=== PATIENT | male | born 1975 | race Caucasian/White ===

== ENCOUNTER 2016-12-08 11:27 | Emergency (ER) | payer OTHER ==
--- NOTE | 2016-12-08 14:29 | ED CLINICAL REPORT ---
Clinical Report - Physicians/Mid Levels [facility] [address] [place] [address] 12/08/2016 11:28 [id number] Time Seen: 12:43; initial patient contact. Arrived- By private vehicle. Historian- patient. HISTORY OF PRESENT ILLNESS Chief Complaint: JOINT PAIN. At its maximum, severity described as moderate. When seen in the E.D., severity described as moderate. Modifying factors- worsened by movement. Relieved by rest. This started about 1 week ago and is still present. It was gradual in onset and has been constant. The patient has had muscle aches. Similar symptoms previously: Many times. Recent medical care: Not recently seen/assessed. REVIEW OF SYSTEMS No fever, chills or skin rash. He has had joint pain. All systems otherwise negative, except as recorded above. PAST HISTORY OA. Surgeries: No history of previous surgery. Medications: Aspirin Oral. Allergies: No Known Drug Allergy. SOCIAL HISTORY Current every day smoker. Occasional alcohol use. No drug use. ADDITIONAL NOTES The nursing notes have been reviewed. PHYSICAL EXAM Vital Signs: 12/08/2016 11:36 BP: 124/83. HR: 92. RR: 15. O2 saturation: 95%. Temp: 97.7 F. Pain level now: 7/10. Have been reviewed as normal. Appearance: Alert. No acute distress. Eyes: Eyes normal inspection. ENT: Pharynx normal. Skin: Skin warm and dry. Normal skin color. No rash. Extremities: Right elbow: moderate tenderness located in the area of the medial epicondyle and lateral epicondyle. Neurovascular intact distally. No erythema, swelling or deformity. No limitation in ROM. Left foot: moderate tenderness of the dorsal aspect of the mid foot. Neurovascular intact distally. No erythema or swelling. No limitation of weight bearing. Neuro: Oriented X 3. No motor deficit. LABS, X-RAYS, AND EKG Lt Foot X-ray: No fracture. Normal alignment. No bony lesion, air in the soft tissue or foreign body. Soft tissues normal. Joint spaces normal. Views: 3 view foot series. Technique: good. The X-rays were independently viewed by me and interpreted contemporaneously by me. Prior films were not available for comparison. Interpretation time: 14:29. PROGRESS AND PROCEDURES Disposition: Discharged home in good and improved condition. Condition: good. CLINICAL IMPRESSION Acute inflammatory tendonitis in the left elbow. Single contusion to the left foot.No hematoma or skin abrasion. INSTRUCTIONS Your Current Medications: CONTINUE TAKING THE FOLLOWING MEDICATIONS: Aspirin Oral. Prescription Medications: Diclofenac 50 mg tablets: take 1 tablet orally every 8 hours as needed for pain or stiffness. Dispense thirty (30). No refill. Follow-up: Screening today revealed the patient's blood pressure to be in the pre-hypertensive range. The patient should follow up with a primary care provider for blood pressure management. Follow-up with: [facility], , [address], [facility], [id number] Follow up in about two days. Call for an appointment. (Electronically signed by Umberto Denise Dr. 12/10/2016 5:32)
--- NOTE | 2016-12-08 14:29 | ED NURSING NOTES ---
Clinical Report - Nurses [facility] [address] [place] [address] 12/08/2016 11:28 Patient: AVIVA LIMON [facility]#: [id number] TRIAGE Triage time 11:32. Acuity: LEVEL 4. Chief Complaint: JOINT PAIN (Right sided joint pain, left knee pain.). 11:46 12/08/16. Alert. No acute distress. SEPSIS SCREEN: Sepsis Screen. Negative (no infection suspected/documented). RICHIE COMA SCORE: [place] Coma Scale: 15- eyes open spontaneously (4); best verbal response- oriented x 4 (5); best motor response- obeys commands (6). --11:46 Sharon Chandra R.N. 11:36 12/08/16. BP: 124/83. HR: 92. RR: 15. O2 saturation: 95%. Temp: 97.7 F. Pain level now: 03/22. --11:46 Sharon Chandra R.N. 11:48 12/08/16. --11:48 Sharon Chandra R.N. Weight: 99.7 kg stated. Height/Length: 71 inches Per Patient. BMI: 30.7. --11:42 Sharon Chandra R.N. Medications Aspirin Oral. --11:40 Sharon Chandra R.N. Allergies No Known Drug Allergy. --11:40 Sharon Chandra R.N. History <<STRICKEN ENTRY-- Arrived by private vehicle. Historian: patient. Primary physician (Pt states he would like to find a primary care doctor, but doesn't currently have one.). Onset. (1 week ago). ( Patient states he has been diagnosed with gout before, but has not had a flare up in a year or two. The patient states he was seeing a family law mediator at [facility] (Dr. Raymond) who told him he may have rheumatoid arthritis.). Reports muscle aches. 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 PAST MEDICAL HX: Immunizations: up-to-date. SOCIAL HX: Light tobacco smoker- less than 1/2 a pack per day. Occasional alcohol use. No drug use. FALL RISK ASSESSMENT: Fall risk assessment completed. No fall risk identified. NUTRITIONAL RISK ASSESSMENT: The nutritional risk assessment revealed no deficiencies. FUNCTIONAL ASSESSMENT: Functional assessment: no impairments noted. LEARNING NEEDS ASSESSMENT: The learning needs assessment revealed no barriers. SKIN INTEGRITY ASSESSMENT: Skin integrity risk assessment completed. No skin integrity risk identified. --11:46 Sharon Chandra R.N. --END STRIKE>> Correction --11:47 Sharon Chandra R.N. Arrived by private vehicle. Historian: patient. Primary physician (Pt states he would like to find a primary care doctor, but doesn't currently have one.). Onset. (1 week ago). ( Patient states he has been diagnosed with gout before, but has not had a flare up in a year or two. The patient states he was seeing a family law mediator at [facility] (Dr. Raymond) who told him he may have osteoarthritis.). Reports muscle aches. 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 PAST MEDICAL HX: Immunizations: up-to-date. SOCIAL HX: Light tobacco smoker- less than 1/2 a pack per day. Occasional alcohol use. No drug use. FALL RISK ASSESSMENT: Fall risk assessment completed. No fall risk identified. NUTRITIONAL RISK ASSESSMENT: The nutritional risk assessment revealed no deficiencies. FUNCTIONAL ASSESSMENT: Functional assessment: no impairments noted. LEARNING NEEDS ASSESSMENT: The learning needs assessment revealed no barriers. SKIN INTEGRITY ASSESSMENT: Skin integrity risk assessment completed. No skin integrity risk identified. --11:48 Sharon Chandra R.N. PROBLEMS: Myocardial Infarction. Sprain. Plantar Fasciitis. Gastroenteritis. Cellulitis. Coronary Artery Disease. Chest Pain. Chest pain . Arthritis. Hypovolemia. Chronic Back Pain. Lumbar Strain. Syncope. Back Pain. Acute Pain. Gout. Tetanus Status. Immunizations. --11:41 Sharon Chandra R.N. ADDITIONAL SURGERIES: Coronary Angioplasty. Stent placement. --11:41 Sharon Chandra R.N. Interventions ID band on patient. To treatment room. --11:46 Sharon Chandra R.N. PHYSICAL ASSESSMENT 11:47 12/08/16. Ambulatory to room. GENERAL / NEURO / PSYCH: Alert. Oriented X 4. Appears in pain. (Patient appears to be in pain when ambulating). HEENT: No facial asymmetry noted. Mucous membranes are pink. RESPIRATORY: Respirations not labored. CVS: Capillary refill less than 2 seconds. Pulses within normal limits. SKIN: Skin is warm and dry. Normal skin turgor. --11:47 Sharon Chandra R.N. NURSING PROGRESS NOTES 11:48 12/08/16. Patient gowned. Two patient identifiers checked. Call light placed in reach. Side rails up x 1. Bed placed in lowest position. Brakes of bed on. --11:48 Sharon Chandra R.N. 13:10 12/08/2016 Motrin PO Tablets 800 mg given. Allergies verified and confirmed 5 rights. --13:10 Sharon Chandra R.N. DISPOSITION / DISCHARGE 14:41 12/08/16. The patient left prior to discharge education being provided. ( This RN looked for the patient in his room and the lobby. This RN attempted to call the patient on his phone, which went to voicemoil.). --14:41 Sharon Chandra R.N. 14:42 12/08/16. Unable to locate patient. Notified the ED physician of patient departure. Patient left without signing form prior to leaving. He left the Emergency Department ambulatory. The patient eloped. --14:43 Sharon Chandra R.N. 14:44 12/08/16. --14:44 Sharon Chandra R.N. 14:43 12/08/16. BP: unable to obtain due to patient not present. HR: unable to obtain due to patient not present. RR: unable to obtain due to patient not present. O2 saturation: unable to obtain due to patient not present. Temp: unable to obtain due to patient not present. Pain level now unable to obtain due to patient not present. --14:44 Sharon Chandra R.N. Locked/Released at 12/08/2016 14:54 by Sharon Chandra R.N.
--- NOTE | 2016-12-08 14:29 | ED NURSING NOTES ---
Clinical Report - Nurses [facility] [address] [place] [address] 12/08/2016 11:28 Patient: AVIVA LIMON [facility]#: [id number] TRIAGE Triage time 11:32. Acuity: LEVEL 4. Chief Complaint: JOINT PAIN (Right sided joint pain, left knee pain.). 11:46 12/08/16. Alert. No acute distress. SEPSIS SCREEN: Sepsis Screen. Negative (no infection suspected/documented). RICHIE COMA SCORE: [place] Coma Scale: 15- eyes open spontaneously (4); best verbal response- oriented x 4 (5); best motor response- obeys commands (6). --11:46 Sharon Chandra R.N. 11:36 12/08/16. BP: 124/83. HR: 92. RR: 15. O2 saturation: 95%. Temp: 97.7 F. Pain level now: 03/22. --11:46 Sharon Chandra R.N. 11:48 12/08/16. --11:48 Sharon Chandra R.N. Weight: 99.7 kg stated. Height/Length: 71 inches Per Patient. BMI: 30.7. --11:42 Sharon Chandra R.N. Medications Aspirin Oral. --11:40 Sharon Chandra R.N. Allergies No Known Drug Allergy. --11:40 Sharon Chandra R.N. History <<STRICKEN ENTRY-- Arrived by private vehicle. Historian: patient. Primary physician (Pt states he would like to find a primary care doctor, but doesn't currently have one.). Onset. (1 week ago). ( Patient states he has been diagnosed with gout before, but has not had a flare up in a year or two. The patient states he was seeing a cleaner housekeeping at [facility] (Dr. Raymond) who told him he may have rheumatoid arthritis.). Reports muscle aches. 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 PAST MEDICAL HX: Immunizations: up-to-date. SOCIAL HX: Light tobacco smoker- less than 1/2 a pack per day. Occasional alcohol use. No drug use. FALL RISK ASSESSMENT: Fall risk assessment completed. No fall risk identified. NUTRITIONAL RISK ASSESSMENT: The nutritional risk assessment revealed no deficiencies. FUNCTIONAL ASSESSMENT: Functional assessment: no impairments noted. LEARNING NEEDS ASSESSMENT: The learning needs assessment revealed no barriers. SKIN INTEGRITY ASSESSMENT: Skin integrity risk assessment completed. No skin integrity risk identified. --11:46 Sharon Chandra R.N. --END STRIKE>> Correction --11:47 Sharon Chandra R.N. Arrived by private vehicle. Historian: patient. Primary physician (Pt states he would like to find a primary care doctor, but doesn't currently have one.). Onset. (1 week ago). ( Patient states he has been diagnosed with gout before, but has not had a flare up in a year or two. The patient states he was seeing a cleaner housekeeping at [facility] (Dr. Raymond) who told him he may have osteoarthritis.). Reports muscle aches. 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 PAST MEDICAL HX: Immunizations: up-to-date. SOCIAL HX: Light tobacco smoker- less than 1/2 a pack per day. Occasional alcohol use. No drug use. FALL RISK ASSESSMENT: Fall risk assessment completed. No fall risk identified. NUTRITIONAL RISK ASSESSMENT: The nutritional risk assessment revealed no deficiencies. FUNCTIONAL ASSESSMENT: Functional assessment: no impairments noted. LEARNING NEEDS ASSESSMENT: The learning needs assessment revealed no barriers. SKIN INTEGRITY ASSESSMENT: Skin integrity risk assessment completed. No skin integrity risk identified. --11:48 Sharon Chandra R.N. PROBLEMS: Myocardial Infarction. Sprain. Plantar Fasciitis. Gastroenteritis. Cellulitis. Coronary Artery Disease. Chest Pain. Chest pain . Arthritis. Hypovolemia. Chronic Back Pain. Lumbar Strain. Syncope. Back Pain. Acute Pain. Gout. Tetanus Status. Immunizations. --11:41 Sharon Chandra R.N. ADDITIONAL SURGERIES: Coronary Angioplasty. Stent placement. --11:41 Sharon Chandra R.N. Interventions ID band on patient. To treatment room. --11:46 Sharon Chandra R.N. PHYSICAL ASSESSMENT 11:47 12/08/16. Ambulatory to room. GENERAL / NEURO / PSYCH: Alert. Oriented X 4. Appears in pain. (Patient appears to be in pain when ambulating). HEENT: No facial asymmetry noted. Mucous membranes are pink. RESPIRATORY: Respirations not labored. CVS: Capillary refill less than 2 seconds. Pulses within normal limits. SKIN: Skin is warm and dry. Normal skin turgor. --11:47 Sharon Chandra R.N. NURSING PROGRESS NOTES 11:48 12/08/16. Patient gowned. Two patient identifiers checked. Call light placed in reach. Side rails up x 1. Bed placed in lowest position. Brakes of bed on. --11:48 Sharon Chandra R.N. 13:10 12/08/2016 Motrin PO Tablets 800 mg given. Allergies verified and confirmed 5 rights. --13:10 Sharon Chandra R.N. DISPOSITION / DISCHARGE 14:41 12/08/16. The patient left prior to discharge education being provided. ( This RN looked for the patient in his room and the lobby. This RN attempted to call the patient on his phone, which went to voicelail.). --14:41 Sharon Chandra R.N. 14:42 12/08/16. Unable to locate patient. Notified the ED physician of patient departure. Patient left without signing form prior to leaving. He left the Emergency Department ambulatory. The patient eloped. --14:43 Sharon Chandra R.N. 14:44 12/08/16. --14:44 Sharon Chandra R.N. 14:43 12/08/16. BP: unable to obtain due to patient not present. HR: unable to obtain due to patient not present. RR: unable to obtain due to patient not present. O2 saturation: unable to obtain due to patient not present. Temp: unable to obtain due to patient not present. Pain level now unable to obtain due to patient not present. --14:44 Sharon Chandra R.N. Locked/Released at 12/08/2016 14:54 by Sharon Chandra R.N.
--- NOTE | 2016-12-08 14:29 | ED CLINICAL REPORT ---
Clinical Report - Physicians/Mid Levels [facility] [address] [place] [address] 12/08/2016 11:28 [id number] Time Seen: 12:43; initial patient contact. Arrived- By private vehicle. Historian- patient. HISTORY OF PRESENT ILLNESS Chief Complaint: JOINT PAIN. At its maximum, severity described as moderate. When seen in the E.D., severity described as moderate. Modifying factors- worsened by movement. Relieved by rest. This started about 1 week ago and is still present. It was gradual in onset and has been constant. The patient has had muscle aches. Similar symptoms previously: Many times. Recent medical care: Not recently seen/assessed. REVIEW OF SYSTEMS No fever, chills or skin rash. He has had joint pain. All systems otherwise negative, except as recorded above. PAST HISTORY OA. Surgeries: No history of previous surgery. Medications: Aspirin Oral. Allergies: No Known Drug Allergy. SOCIAL HISTORY Current every day smoker. Occasional alcohol use. No drug use. ADDITIONAL NOTES The nursing notes have been reviewed. PHYSICAL EXAM Vital Signs: 12/08/2016 11:36 BP: 124/83. HR: 92. RR: 15. O2 saturation: 95%. Temp: 97.7 F. Pain level now: 7/10. Have been reviewed as normal. Appearance: Alert. No acute distress. Eyes: Eyes normal inspection. ENT: Pharynx normal. Skin: Skin warm and dry. Normal skin color. No rash. Extremities: Right elbow: moderate tenderness located in the area of the medial epicondyle and lateral epicondyle. Neurovascular intact distally. No erythema, swelling or deformity. No limitation in ROM. Left foot: moderate tenderness of the dorsal aspect of the mid foot. Neurovascular intact distally. No erythema or swelling. No limitation of weight bearing. Neuro: Oriented X 3. No motor deficit. LABS, X-RAYS, AND EKG Lt Foot X-ray: No fracture. Normal alignment. No bony lesion, air in the soft tissue or foreign body. Soft tissues normal. Joint spaces normal. Views: 3 view foot series. Technique: good. The X-rays were independently viewed by me and interpreted contemporaneously by me. Prior films were not available for comparison. Interpretation time: 14:29. PROGRESS AND PROCEDURES Disposition: Discharged home in good and improved condition. Condition: good. CLINICAL IMPRESSION Acute inflammatory tendonitis in the left elbow. Single contusion to the left foot.No hematoma or skin abrasion. INSTRUCTIONS Your Current Medications: CONTINUE TAKING THE FOLLOWING MEDICATIONS: Aspirin Oral. Prescription Medications: Diclofenac 50 mg tablets: take 1 tablet orally every 8 hours as needed for pain or stiffness. Dispense thirty (30). No refill. Follow-up: Screening today revealed the patient's blood pressure to be in the pre-hypertensive range. The patient should follow up with a primary care provider for blood pressure management. Follow-up with: [facility], , [address], [facility], [address] Follow up in about two days. Call for an appointment. (Electronically signed by Umberto Denise Dr. 12/10/2016 5:32)
--- NOTE | 2016-12-08 14:30 | ED ORDER SUMMARY ---
..... Patient: AVIVA LIMON OrderSheet [facility] VisitID: [id number] [place] [address] 41y, M Registration Date/Time: 12/08/2016 ORDER SHEET Weight: 99.7 kg (stated) Allergies: No Known Drug Allergy GENERAL ORDERS: Foot 3V Right Urgent (13:07 12/08/2016 Nitesh Huerta) (Ack 13:09 Radha) (14:31 Shayan R.N.) MEDICATION ORDERS: Motrin PO 800 mg (NOW) (13:07 12/08/2016 Nitesh Huerta) (Ack 13:08 Shayan R.N.) (13:10 Shayan R.N.) IV FLUIDS: ORDER SHEET NOTES: [Electronically signed by Sharon Chandra R.N. (14:54 12/08/2016)] [Electronically signed by Umberto Denise Dr. (05:32 12/10/2016)] [Electronically locked/signed by Sharon Chandra R.N. (14:54 12/08/2016)]
--- NOTE | 2016-12-08 14:30 | ED ORDER SUMMARY ---
..... Patient: AVIVA LIMON OrderSheet [facility] VisitID: [id number] [place] [address] 41y, M Registration Date/Time: 12/08/2016 ORDER SHEET Weight: 99.7 kg (stated) Allergies: No Known Drug Allergy GENERAL ORDERS: Foot 3V Right Urgent (13:07 12/08/2016 Nitesh Huerta) (Ack 13:09 Radha) (14:31 Shayan R.N.) MEDICATION ORDERS: Motrin PO 800 mg (NOW) (13:07 12/08/2016 Nitesh Huerta) (Ack 13:08 Shayan R.N.) (13:10 Shayan R.N.) IV FLUIDS: ORDER SHEET NOTES: [Electronically signed by Sharon Chandra R.N. (14:54 12/08/2016)] [Electronically signed by Umberto Denise Dr. (05:32 12/10/2016)] [Electronically locked/signed by Sharon Chandra R.N. (14:54 12/08/2016)]
--- NOTE | 2016-12-08 15:14 | DIAGNOSTIC IMAGING REPORT ---
PROCEDURE: XR FOOT 3 VIEWS - RIGHT INDICATION: PAIN TECHNIQUE: Three views. COMPARISON: None. FINDINGS: Osseous structures and joint spaces are normal. IMPRESSION: 1. Normal right foot.
--- NOTE | 2016-12-10 05:32 | ED MAR SUMMARY ---
..... Medication Administration Record [facility] [address] [place] [address] Patient: AVIVA LIMON Visit ID: [id number] 41y, M Weight: 99.7 kg Height/Length: 71 in BMI: 30.7 ALLERGIES: No Known Drug Allergy Given 13:10 12/08/2016 Sharon Chandra RAnaNAna Medication Administered: MOTRIN [PO], Dose: 800 mg Tablets PO. Medication Ordered: Motrin PO 800 mg (NOW).
--- NOTE | 2016-12-10 05:32 | ED DISCHARGE INSTRUCTIONS ---
Patient: AVIVA LIMON General Instructions [facility] VisitID: [id number] [address] [place], [place] [id number] 41y, M Registration Date/Time: 12/08/2016 Acute inflammatory tendonitis in the left elbow. Single contusion to the left foot.No hematoma or skin abrasion. INSTRUCTIONS Your Current Medications: CONTINUE TAKING THE FOLLOWING MEDICATIONS: Aspirin Oral. Prescription Medications: Diclofenac 50 mg tablets: take 1 tablet orally every 8 hours as needed for pain or stiffness. Dispense thirty (30). No refill. Follow-up: Screening today revealed the patient's blood pressure to be in the pre-hypertensive range. The patient should follow up with a primary care provider for blood pressure management. Follow[facility] with: [facility], , [address], , [place], [phone] Follow up in about two days. Call for an appointment. ADDITIONAL INFORMATION Contusion,Soft Tissue You have a CONTUSION, which is a bruise with swelling and some bleeding under the skin. There are no broken bones. This injury takes a few days to a few weeks to heal. Home Care: 1) Keep the injured part elevated to reduce pain and swelling. This is especially important during the first 48 hours. 2) Make an ice pack (ice cubes in a plastic bag, wrapped in a towel) and apply for 20 minutes every 1-2 hours the first day. Continue this 3-4 times a day until the pain and swelling goes away. 3) You may use acetaminophen (Tylenol) or ibuprofen (Motrin, Advil) to control pain, unless another pain medicine was prescribed. [ NOTE : If you have chronic liver or kidney disease or ever had a stomach ulcer or GI bleeding, talk with your doctor before using these medicines.] Follow Up with your doctor or this facility if you are not improving within the next THREE days. [NOTE: If X-rays were taken, they will be reviewed by a radiologist. You will be notified of any new findings that may affect your care.] Get Prompt Medical Attention if any of the following occur: -- Pain or swelling increases -- Injured arm or leg becomes cold, blue, numb or tingly -- Redness, warmth or drainage from the skin Tendonitis A tendon is the thick fibrous cord that joins muscle to bone and causes joints to move. Tendonitis is inflammation of the tendon which may be due to overuse, injury or infection. This usually involves the shoulders, forearm, wrist, hands and foot. Symptoms include local pain, swelling and tenderness to the touch. Movement of the involved joint increases the pain. Tendonitis requires about 4 to 6 weeks to heal. It is treated by preventing motion of the tendon with a splint or brace and use of anti-inflammatory medicine. Home Care: Apply an ice pack (ice cubes in a plastic bag, wrapped in a towel) over the injured area for 20 minutes every 1-2 hours the first day for pain relief. Continue this 3-4 times a day until the pain and swelling goes away. Rest the inflamed joint and protect it from movement. You may use ibuprofen (Motrin, Advil) or naproxen (Aleve, Naprosyn) to treat pain and inflammation, unless another medicine was prescribed. If you can't take these medicines, acetaminophen (Tylenol) may help with the pain, but does not treat inflammation. [NOTE : If you have chronic liver or kidney disease or ever had a stomach ulcer or GI bleeding, talk with your doctor before using these medicines.] As your symptoms improve, begin gradual motion at the involved joint. Follow Up With Your Doctor If Not Improving After The First Five Days Of Treatment. Get Prompt Medical Attention If Any Of The Following Occur: Redness over the painful area Increasing pain or swelling at the joint Fever of 100.4F (38C) or higher, or as directed by your healthcare provider You have been given the following additional information: Contusion, Soft Tissue Tendonitis (Electronically signed by Umberto Denise Dr. 12/10/2016 5:32)
--- NOTE | 2016-12-10 05:32 | ED DISCHARGE INSTRUCTIONS ---
Patient: AVIVA LIMON General Instructions [facility] VisitID: [id number] [address] [place], [place] [id number] 41y, M Registration Date/Time: 12/08/2016 Acute inflammatory tendonitis in the left elbow. Single contusion to the left foot.No hematoma or skin abrasion. INSTRUCTIONS Your Current Medications: CONTINUE TAKING THE FOLLOWING MEDICATIONS: Aspirin Oral. Prescription Medications: Diclofenac 50 mg tablets: take 1 tablet orally every 8 hours as needed for pain or stiffness. Dispense thirty (30). No refill. Follow-up: Screening today revealed the patient's blood pressure to be in the pre-hypertensive range. The patient should follow up with a primary care provider for blood pressure management. Follow-up with: [facility], , [address], , [place], [id number] Follow up in about two days. Call for an appointment. ADDITIONAL INFORMATION Contusion,Soft Tissue You have a CONTUSION, which is a bruise with swelling and some bleeding under the skin. There are no broken bones. This injury takes a few days to a few weeks to heal. Home Care: 1) Keep the injured part elevated to reduce pain and swelling. This is especially important during the first 48 hours. 2) Make an ice pack (ice cubes in a plastic bag, wrapped in a towel) and apply for 20 minutes every 1-2 hours the first day. Continue this 3-4 times a day until the pain and swelling goes away. 3) You may use acetaminophen (Tylenol) or ibuprofen (Motrin, Advil) to control pain, unless another pain medicine was prescribed. [ NOTE : If you have chronic liver or kidney disease or ever had a stomach ulcer or GI bleeding, talk with your doctor before using these medicines.] Follow Up with your doctor or this facility if you are not improving within the next THREE days. [NOTE: If X-rays were taken, they will be reviewed by a radiologist. You will be notified of any new findings that may affect your care.] Get Prompt Medical Attention if any of the following occur: -- Pain or swelling increases -- Injured arm or leg becomes cold, blue, numb or tingly -- Redness, warmth or drainage from the skin Tendonitis A tendon is the thick fibrous cord that joins muscle to bone and causes joints to move. Tendonitis is inflammation of the tendon which may be due to overuse, injury or infection. This usually involves the shoulders, forearm, wrist, hands and foot. Symptoms include local pain, swelling and tenderness to the touch. Movement of the involved joint increases the pain. Tendonitis requires about 4 to 6 weeks to heal. It is treated by preventing motion of the tendon with a splint or brace and use of anti-inflammatory medicine. Home Care: Apply an ice pack (ice cubes in a plastic bag, wrapped in a towel) over the injured area for 20 minutes every 1-2 hours the first day for pain relief. Continue this 3-4 times a day until the pain and swelling goes away. Rest the inflamed joint and protect it from movement. You may use ibuprofen (Motrin, Advil) or naproxen (Aleve, Naprosyn) to treat pain and inflammation, unless another medicine was prescribed. If you can't take these medicines, acetaminophen (Tylenol) may help with the pain, but does not treat inflammation. [NOTE : If you have chronic liver or kidney disease or ever had a stomach ulcer or GI bleeding, talk with your doctor before using these medicines.] As your symptoms improve, begin gradual motion at the involved joint. Follow Up With Your Doctor If Not Improving After The First Five Days Of Treatment. Get Prompt Medical Attention If Any Of The Following Occur: Redness over the painful area Increasing pain or swelling at the joint Fever of 100.4F (38C) or higher, or as directed by your healthcare provider You have been given the following additional information: Contusion, Soft Tissue Tendonitis (Electronically signed by Umberto Denise Dr. 12/10/2016 5:32)
--- NOTE | 2016-12-10 05:32 | ED MED RECONCILIATION SUMMARY ---
Patient: AVIVA LIMON Medication Reconciliation Report [facility] VisitID: [id number] [address] [place] [address] 41y, M Registration Date/Time: 12/08/2016 Weight: 99.7 kg Height/Length: 71 in. BMI: 30.7 ALLERGIES: No Known Drug Allergy The patient's Home Medications are listed below: CONTINUE TAKING THE FOLLOWING MEDICATIONS: Aspirin Oral The source(s) of the original Home Medication information: Not obtained. The following Medications were given to the patient in the Emergency Department: Motrin [PO] PO 800 mg, administered: 12/08/2016 1:10:00 PM The following Medications were prescribed to the patient: Diclofenac 50 mg tablets: take 1 tablet orally every 8 hours as needed for pain or stiffness. Dispense thirty (30). No refill. -- Umberto Denise Dr.
--- NOTE | 2016-12-10 05:32 | ED MAR SUMMARY ---
..... Medication Administration Record [facility] [address] [place] [address] Patient: AVIVA LIMON Visit ID: [id number] 41y, M Weight: 99.7 kg Height/Length: 71 in BMI: 30.7 ALLERGIES: No Known Drug Allergy Given 13:10 12/08/2016 Sharon Chandra RAnaNAna Medication Administered: MOTRIN [PO], Dose: 800 mg Tablets PO. Medication Ordered: Motrin PO 800 mg (NOW).
--- NOTE | 2016-12-10 05:32 | ED MED RECONCILIATION SUMMARY ---
Patient: AVIVA LIMON Medication Reconciliation Report [facility] VisitID: [id number] [address] [place] [address] 41y, M Registration Date/Time: 12/08/2016 Weight: 99.7 kg Height/Length: 71 in. BMI: 30.7 ALLERGIES: No Known Drug Allergy The patient's Home Medications are listed below: CONTINUE TAKING THE FOLLOWING MEDICATIONS: Aspirin Oral The source(s) of the original Home Medication information: Not obtained. The following Medications were given to the patient in the Emergency Department: Motrin [PO] PO 800 mg, administered: 12/08/2016 1:10:00 PM The following Medications were prescribed to the patient: Diclofenac 50 mg tablets: take 1 tablet orally every 8 hours as needed for pain or stiffness. Dispense thirty (30). No refill. -- Umberto Denise Dr.
== END 2016-12-08 14:45 | disposition left against medical advice (07) ==
LOC: ED SRH 11:27
DX: M77.8 Other enthesopathies, not elsewhere classified (principal); S90.32XA Contusion of left foot, initial encounter; X58.XXXA Exposure to other specified factors, initial encounter; Y99.9 Unspecified external cause status; Y92.9 Unspecified place or not applicable; Y93.9 Activity, unspecified; F17.200 Nicotine dependence, unspecified, uncomplicated